=== PATIENT | male | born 1985 | race African-American/Black ===

== ENCOUNTER 2018-02-14 17:46 | Emergency (ER) | payer OTHER, SELFPAY ==
[2018-02-14] MEDS ORDERED: Ketorolac Tromethamine 60 MG/2 ML VIAL ONE (18:09)
[2018-02-14] MEDS ORDERED: Cyclobenzaprine 10 MG TAB ONE (18:09)
--- NOTE | 2018-02-14 18:51 | RAD ---
LUMBAR SPINE THREE VIEWS: 02/14/18 COMPARISON: None. HISTORY: Back pain. FINDINGS: lumbar pedicles are intact on frontal imaging. Lateral imaging demonstrates normal lumbar vertebral b lore height and alignment. No acute findings are seen. IMPRESSION: No acute osseous abnormality. POS: [facility]
== END 2018-02-14 18:55 | disposition home or self-care (01) ==
LOC: SCSER 17:46
DX: M54.5 Low back pain (principal); F17.210 Nicotine dependence, cigarettes, uncomplicated
CPT/HCPCS: 72100; 96372; J1885

== ENCOUNTER 2021-02-10 13:56 | Outpatient (CLI) | payer BC | END 2021-02-10 13:57 | disposition home or self-care (01) | LOC: SCSMRI 13:56 | PROVIDERS: ATTEND Orthopaedic Surgery | DX: M54.5 Low back pain (principal); M51.36 Other intervertebral disc degeneration, lumbar region | CPT/HCPCS: 72148 ==